=== PATIENT | male | born 1940 | race Caucasian/White ===

== ENCOUNTER 2020-04-12 15:05 | Inpatient (IN) ==
[2020-04-12] MEDS ORDERED: NS 0.9% 1000 ml BAG 1,000 ML IV ONE (15:15)
[2020-04-12] MEDS ORDERED: Magnesium Sulfate IV 1GM/100ML 1 GM/100 ML BAG IV ONE (15:32)
[2020-04-12] MEDS ORDERED: Ondansetron 4 mg VIAL 2 MG/ML 2 ml VIAL IV PRN (15:57)
[2020-04-12] MEDS ORDERED: NS 0.9% 1000 ml BAG 1,000 ML IV SCH (16:00)
[2020-04-12 16:30] LABS: Albumin/Globulin Ratio 0.8 (1-3); BUN/Creatinine Ratio 27.2 (8-20); Calcium 9.8 mg/dL (8.6-10.3); EGFR African American 54.3 (>60); EGFR Non-African American 44.9 (>60); Globulin 3.9 g/dL (2-4); Potassium 4.7 mmol/L (3.5-5.0); Total Protein 6.9 g/dL (6.4-8.9)
[2020-04-12 16:36] LABS: Hematocrit 27 % (42-52); Mean Corpuscular HGB Conc 33 g/dL (31-36); Mean Corpuscular Hemoglobin 32 pg (27-31); Mean Corpuscular Volume 97 fL (80-94); Mean Platelet Volume 9.6 fL (7.4-10.4); Platelet Count 26 10^3/uL (150-450); Red Blood Count 2.78 10^6 /uL (4.18-5.48); Red Cell Distribution Width 22 % (10-15); White Blood Count 24.3 10^3/uL (3.5-10.8)
[2020-04-12 16:38] LABS: Microcytosis 1+; Polychromasia 1+
[2020-04-12 16:43] LABS: ABS Basophils 0.1 10^3/ul (0-0.2); ABS Lymphocytes 19.5 10^3/ul (1.0-4.8); ABS Monocytes 1.1 10^3/ul (0-0.8); ABS Neutrophils 3.5 10^3/ul (1.5-7.7); Eosinophil % 0.1 %; Lymphocyte % 80.4 %; Nucleated Red Blood Cells % 0.1
[2020-04-12 17:17] LABS: Corrected Retic Count 1.4 % (0.5-1.5); Hematocrit for Retic CNT 27 % (42-52); Immature Retic Fraction 0.58
[2020-04-12 17:40] LABS: Indirect Bilirubin 1.4 mg/dL (0.3-1.0); Magnesium 2.4 mg/dL (1.9-2.7)
[2020-04-12 17:45] LABS: Phosphorus 4.5 mg/dL (2.5-5.0); Uric Acid 8.3 mg/dL (4.4-7.6)
[2020-04-13] MEDS ORDERED: NS 0.9% 500 ml BAG 500 ML IV ONE (03:38)
[2020-04-13 11:51] LABS: Hematocrit 23 % (42-52); Hemoglobin 7.7 g/dL (14.0-18.0); Mean Corpuscular HGB Conc 33 g/dL (31-36); Mean Corpuscular Hemoglobin 32 pg (27-31); Mean Corpuscular Volume 97 fL (80-94); Mean Platelet Volume 8.8 fL (7.4-10.4); Platelet Count 20 10^3/uL (150-450); Red Cell Distribution Width 22 % (10-15); White Blood Count 21.1 10^3/uL (3.5-10.8)
[2020-04-13 12:02] LABS: BUN/Creatinine Ratio 26.3 (8-20); Calcium 9.4 mg/dL (8.6-10.3); EGFR African American 52.3 (>60); EGFR Non-African American 43.3 (>60); Potassium 4.4 mmol/L (3.5-5.0)
[2020-04-13 12:52] LABS: ABS Basophils 0.1 10^3/ul (0-0.2); ABS Lymphocytes 17.4 10^3/ul (1.0-4.8); ABS Monocytes 0.6 10^3/ul (0-0.8); Eosinophil % 0.2 %; Lymphocyte % 82.4 %
[2020-04-14 06:16] LABS: Albumin 2.8 g/dL (3.2-5.2); Albumin/Globulin Ratio 0.8 (1-3); BUN/Creatinine Ratio 29.8 (8-20); Calcium 9.9 mg/dL (8.6-10.3); EGFR African American 58.8 (>60); EGFR Non-African American 48.6 (>60); Globulin 3.6 g/dL (2-4); Potassium 4.6 mmol/L (3.5-5.0); Total Bilirubin 1.8 mg/dL (0.2-1.0); Total Protein 6.4 g/dL (6.4-8.9)
[2020-04-14 07:14] LABS: Hematocrit 28 % (42-52); Hemoglobin 9.7 g/dL (14.0-18.0); Mean Corpuscular HGB Conc 34 g/dL (31-36); Mean Corpuscular Hemoglobin 33 pg (27-31); Mean Corpuscular Volume 94 fL (80-94); Mean Platelet Volume 8.8 fL (7.4-10.4); Platelet Count 18 10^3/uL (150-450); Red Cell Distribution Width 19 % (10-15); White Blood Count 22.2 10^3/uL (3.5-10.8)
[2020-04-14 09:33] LABS: ABS Basophils 0.1 10^3/ul (0-0.2); ABS Lymphocytes 17.6 10^3/ul (1.0-4.8); ABS Monocytes 0.8 10^3/ul (0-0.8); ABS Neutrophils 3.7 10^3/ul (1.5-7.7); Eosinophil % 0.1 %; Lymphocyte % 79.1 %
[2020-04-15 07:05] LABS: Hematocrit 28 % (42-52); Hemoglobin 9.4 g/dL (14.0-18.0); Mean Corpuscular HGB Conc 34 g/dL (31-36); Mean Corpuscular Hemoglobin 32 pg (27-31); Mean Corpuscular Volume 95 fL (80-94); Mean Platelet Volume 8.6 fL (7.4-10.4); Platelet Count 18 10^3/uL (150-450); Red Blood Count 2.91 10^6 /uL (4.18-5.48); Red Cell Distribution Width 20 % (10-15); White Blood Count 21.7 10^3/uL (3.5-10.8)
[2020-04-15 07:09] LABS: Calcium 9.8 mg/dL (8.6-10.3); EGFR African American 53.9 (>60); EGFR Non-African American 44.6 (>60); Potassium 4.7 mmol/L (3.5-5.0); Uric Acid 5.2 mg/dL (4.4-7.6)
[2020-04-15 07:34] LABS: ABS Basophils 0.1 10^3/ul (0-0.2); ABS Lymphocytes 17.6 10^3/ul (1.0-4.8); ABS Monocytes 0.8 10^3/ul (0-0.8); ABS Neutrophils 3.3 10^3/ul (1.5-7.7); Eosinophil % 0.1 %; Lymphocyte % 80.9 %
[2020-04-15] MEDS ORDERED: Lidocaine 2% 10 ML VIAL INJ ONE (10:16)
[2020-04-15 12:59] LABS: Hepatitis B Surface Antigen Nonreactive (Nonreactive)
[2020-04-15 13:04] LABS: Hepatitis A Ab IgM Negative (Negative)
[2020-04-15 13:05] LABS: Hepatitis B Core IgM Nonreactive (Nonreactive)
[2020-04-15 13:17] LABS: Hepatitis B Surface Ab Not Immune (Immune)
[2020-04-15] MEDS ORDERED: Morphine 2 MG/ML SYRINGE IV ONE (14:41)
[2020-04-15] MEDS: Senna TAB 8.6 mg TAB PO SCH (20:34)
[2020-04-16 08:11] LABS: Hematocrit 27 % (42-52); Mean Corpuscular HGB Conc 34 g/dL (31-36); Mean Corpuscular Hemoglobin 33 pg (27-31); Mean Corpuscular Volume 96 fL (80-94); Mean Platelet Volume 8.7 fL (7.4-10.4); Platelet Count 16 10^3/uL (150-450); Red Blood Count 2.78 10^6 /uL (4.18-5.48); Red Cell Distribution Width 20 % (10-15); White Blood Count 19.8 10^3/uL (3.5-10.8)
[2020-04-16 08:21] LABS: Albumin 2.7 g/dL (3.2-5.2); Albumin/Globulin Ratio 0.8 (1-3); BUN/Creatinine Ratio 29.1 (8-20); EGFR African American 62.4 (>60); EGFR Non-African American 51.6 (>60); Globulin 3.5 g/dL (2-4); Potassium 4.9 mmol/L (3.5-5.0); Total Bilirubin 1.6 mg/dL (0.2-1.0); Total Protein 6.2 g/dL (6.4-8.9)
[2020-04-16 09:08] LABS: ABS Basophils 0.1 10^3/ul (0-0.2); ABS Lymphocytes 16.1 10^3/ul (1.0-4.8); ABS Monocytes 0.7 10^3/ul (0-0.8); ABS Neutrophils 2.8 10^3/ul (1.5-7.7); Eosinophil % 0.2 %; Lymphocyte % 81.3 %
[2020-04-16] MEDS ORDERED: diPHENhydraMINE IV 50 MG/ML 1 ml VIAL (BENADRYL) SLOW PUSH ONE (09:15)
[2020-04-16] MEDS ORDERED: Meperidine 50 mg/ml SYRINGE 1 ml IV PRN (09:23)
[2020-04-16] MEDS ORDERED: Famotidine IV 10 MG/ML 2 ml VIAL (20 mg) IV SLOW PU PRN (09:23)
[2020-04-16] MEDS ORDERED: diPHENhydraMINE IV 50 MG/ML 1 ml VIAL (BENADRYL) IV ONE (09:24)
[2020-04-16] MEDS ORDERED: RITUXIMAB IVPB ONE (09:30)
[2020-04-16] MEDS ORDERED: NS 0.9% IVPB ONE (09:30)
[2020-04-16] MEDS: Sulfamethox/Trimethoprim DS TAB 800/160 mg PO SCH (09:42)
[2020-04-16] MEDS: methylPREDNISolone 125 mg 2 ML VIAL IV ONE ×2 (11:53→17:49)
[2020-04-16] MEDS ORDERED: Palonosetron 0.25 MG in Premix IV 0 ML IV ONE (16:00)
[2020-04-16] MEDS: NS 0.9% IVPB SCH (16:08)
[2020-04-16] MEDS: ETOPOSIDE IVPB SCH (16:08)
[2020-04-16] MEDS: DOXORUBICIN IVPB SCH (16:08)
[2020-04-16] MEDS: VINCRISTINE IVPB SCH (16:08)
[2020-04-16] MEDS ORDERED: APREPITANT 130 MG in Premix IV 0 ML IVPB ONE (16:15)
[2020-04-16] MEDS: Senna TAB 8.6 mg TAB PO SCH (21:35)
[2020-04-17 06:27] LABS: ABS Lymphocytes 1.4 10^3/ul (1.0-4.8); ABS Monocytes 0.3 10^3/ul (0-0.8); ABS Neutrophils 3.3 10^3/ul (1.5-7.7); Hematocrit 26 % (42-52); Hemoglobin 8.6 g/dL (14.0-18.0); Lymphocyte % 27.9 %; Mean Corpuscular HGB Conc 33 g/dL (31-36); Mean Corpuscular Hemoglobin 32 pg (27-31); Mean Corpuscular Volume 97 fL (80-94); Mean Platelet Volume 8.9 fL (7.4-10.4); Platelet Count 14 10^3/uL (150-450); Red Blood Count 2.68 10^6 /uL (4.18-5.48); Red Cell Distribution Width 20 % (10-15)
[2020-04-17 06:29] LABS: Albumin 2.6 g/dL (3.2-5.2); Albumin/Globulin Ratio 0.8 (1-3); BUN/Creatinine Ratio 28.7 (8-20); Calcium 9.6 mg/dL (8.6-10.3); EGFR Non-African American 37.2 (>60); Globulin 3.4 g/dL (2-4); Potassium 5.7 mmol/L (3.5-5.0); Total Bilirubin 1.1 mg/dL (0.2-1.0)
[2020-04-17] MEDS: Polyethylene Glycol 3350 17 GM PACKET PO SCH (13:58)
[2020-04-17] MEDS ORDERED: NS 0.9% 1000 ml BAG 1,000 ML IV ONE (15:08)
[2020-04-17] MEDS: NS 0.9% IVPB SCH (15:40)
[2020-04-17] MEDS: VINCRISTINE IVPB SCH (15:40)
[2020-04-17] MEDS: DOXORUBICIN IVPB SCH (15:40)
[2020-04-17] MEDS: ETOPOSIDE IVPB SCH (15:40)
[2020-04-17 15:45] LABS: BUN/Creatinine Ratio 32.1 (8-20); EGFR African American 48.1 (>60); EGFR Non-African American 39.7 (>60); Uric Acid 4.1 mg/dL (4.4-7.6)
[2020-04-17] MEDS: Senna TAB 8.6 mg TAB PO SCH (22:27)
[2020-04-18 07:06] LABS: Albumin 2.4 g/dL (3.2-5.2); Albumin/Globulin Ratio 0.7 (1-3); BUN/Creatinine Ratio 36.9 (8-20); Calcium 8.9 mg/dL (8.6-10.3); EGFR African American 55.2 (>60); EGFR Non-African American 45.6 (>60); Globulin 3.4 g/dL (2-4); Total Bilirubin 0.8 mg/dL (0.2-1.0); Total Protein 5.8 g/dL (6.4-8.9)
[2020-04-18 07:26] LABS: Potassium 5.5 mmol/L (3.5-5.0)
[2020-04-18 08:35] LABS: ABS Monocytes 0.2 10^3/ul (0-0.8); ABS Neutrophils 3.5 10^3/ul (1.5-7.7); Hematocrit 24 % (42-52); Lymphocyte % 21.6 %; Mean Corpuscular HGB Conc 34 g/dL (31-36); Mean Corpuscular Hemoglobin 33 pg (27-31); Mean Corpuscular Volume 97 fL (80-94); Mean Platelet Volume 8.8 fL (7.4-10.4); Platelet Count 15 10^3/uL (150-450); Red Blood Count 2.47 10^6 /uL (4.18-5.48); Red Cell Distribution Width 20 % (10-15); White Blood Count 4.7 10^3/uL (3.5-10.8)
[2020-04-18] MEDS: Polyethylene Glycol 3350 17 GM PACKET PO SCH (09:54)
[2020-04-18] MEDS: Sulfamethox/Trimethoprim DS TAB 800/160 mg PO SCH (10:05)
[2020-04-18] MEDS: VINCRISTINE IVPB SCH (15:35)
[2020-04-18] MEDS: ETOPOSIDE IVPB SCH (15:35)
[2020-04-18] MEDS: DOXORUBICIN IVPB SCH (15:35)
[2020-04-18] MEDS: NS 0.9% IVPB SCH (15:35)
[2020-04-18] MEDS: Senna TAB 8.6 mg TAB PO SCH (22:15)
[2020-04-19 07:40] LABS: Albumin 2.6 g/dL (3.2-5.2); Albumin/Globulin Ratio 0.7 (1-3); BUN/Creatinine Ratio 38.8 (8-20); Calcium 8.9 mg/dL (8.6-10.3); EGFR African American 56.1 (>60); EGFR Non-African American 46.3 (>60); Globulin 3.5 g/dL (2-4); Total Protein 6.1 g/dL (6.4-8.9)
[2020-04-19 07:41] LABS: Potassium 5.2 mmol/L (3.5-5.0)
[2020-04-19 07:47] LABS: ABS Monocytes 0.1 10^3/ul (0-0.8); Hematocrit 27 % (42-52); Hemoglobin 9.1 g/dL (14.0-18.0); Lymphocyte % 19.3 %; Mean Corpuscular HGB Conc 33 g/dL (31-36); Mean Corpuscular Hemoglobin 32 pg (27-31); Mean Corpuscular Volume 97 fL (80-94); Mean Platelet Volume 8.9 fL (7.4-10.4); Nucleated Red Blood Cells % 0.1; Platelet Count 19 10^3/uL (150-450); Red Blood Count 2.81 10^6 /uL (4.18-5.48); Red Cell Distribution Width 20 % (10-15); White Blood Count 5.1 10^3/uL (3.5-10.8)
[2020-04-19] MEDS: Polyethylene Glycol 3350 17 GM PACKET PO SCH (08:45)
[2020-04-19] MEDS ORDERED: Palonosetron 0.25 MG in Premix IV 0 ML IVPB ONE (09:00)
[2020-04-19] MEDS ORDERED: NS 0.9% 1000 ml BAG 1,000 ML IV ONE (10:34)
[2020-04-19] MEDS: ETOPOSIDE IVPB SCH (15:26)
[2020-04-19] MEDS: VINCRISTINE IVPB SCH (15:26)
[2020-04-19] MEDS: DOXORUBICIN IVPB SCH (15:26)
[2020-04-19] MEDS: NS 0.9% IVPB SCH (15:26)
[2020-04-19 17:13] LABS: Albumin 2.4 g/dL (3.2-5.2); Albumin/Globulin Ratio 0.8 (1-3); BUN/Creatinine Ratio 41.2 (8-20); Calcium 8.3 mg/dL (8.6-10.3); EGFR African American 61.3 (>60); EGFR Non-African American 50.7 (>60); Globulin 3.2 g/dL (2-4); Potassium 4.6 mmol/L (3.5-5.0); Total Bilirubin 0.8 mg/dL (0.2-1.0); Total Protein 5.6 g/dL (6.4-8.9)
[2020-04-19] MEDS: Senna TAB 8.6 mg TAB PO SCH (22:13)
[2020-04-20 07:57] LABS: ABS Lymphocytes 0.8 10^3/ul (1.0-4.8); ABS Neutrophils 2.6 10^3/ul (1.5-7.7); Hematocrit 25 % (42-52); Hemoglobin 8.3 g/dL (14.0-18.0); Mean Corpuscular HGB Conc 34 g/dL (31-36); Mean Corpuscular Hemoglobin 32 pg (27-31); Mean Corpuscular Volume 97 fL (80-94); Mean Platelet Volume 8.6 fL (7.4-10.4); Platelet Count 15 10^3/uL (150-450); Red Blood Count 2.57 10^6 /uL (4.18-5.48); Red Cell Distribution Width 20 % (10-15); White Blood Count 3.4 10^3/uL (3.5-10.8)
[2020-04-20 07:58] LABS: Albumin 2.4 g/dL (3.2-5.2); Albumin/Globulin Ratio 0.7 (1-3); BUN/Creatinine Ratio 40.9 (8-20); Calcium 8.7 mg/dL (8.6-10.3); EGFR African American 60.8 (>60); EGFR Non-African American 50.3 (>60); Globulin 3.3 g/dL (2-4); Phosphorus 4.7 mg/dL (2.5-5.0); Total Bilirubin 0.9 mg/dL (0.2-1.0); Total Protein 5.7 g/dL (6.4-8.9); Uric Acid 4.6 mg/dL (4.4-7.6)
[2020-04-20 08:03] LABS: Potassium 5.2 mmol/L (3.5-5.0)
[2020-04-20] MEDS: Polyethylene Glycol 3350 17 GM PACKET PO SCH (08:38)
[2020-04-20] MEDS: Sulfamethox/Trimethoprim DS TAB 800/160 mg PO SCH (08:38)
[2020-04-20] MEDS ORDERED: NS 0.9% 500 ml BAG 500 ML IV ONE (12:02)
[2020-04-20] MEDS ORDERED: NS 0.9% IVPB ONE ×2 (15:00→17:00)
[2020-04-20] MEDS ORDERED: CYCLOPHOSPHAMIDE IVPB ONE ×2 (15:00→17:00)
[2020-04-20] MEDS: Senna TAB 8.6 mg TAB PO SCH (21:04)
[2020-04-21 07:52] LABS: ABS Lymphocytes 0.5 10^3/ul (1.0-4.8); ABS Neutrophils 2.1 10^3/ul (1.5-7.7); Hematocrit 23 % (42-52); Hemoglobin 7.7 g/dL (14.0-18.0); Lymphocyte % 19.6 %; Mean Corpuscular HGB Conc 34 g/dL (31-36); Mean Corpuscular Hemoglobin 32 pg (27-31); Mean Corpuscular Volume 97 fL (80-94); Mean Platelet Volume 8.7 fL (7.4-10.4); Nucleated Red Blood Cells % 0.1; Platelet Count 14 10^3/uL (150-450); Red Blood Count 2.39 10^6 /uL (4.18-5.48); Red Cell Distribution Width 20 % (10-15); White Blood Count 2.6 10^3/uL (3.5-10.8)
[2020-04-21 07:57] LABS: Albumin 2.4 g/dL (3.2-5.2); Albumin/Globulin Ratio 0.8 (1-3); BUN/Creatinine Ratio 40.9 (8-20); Calcium 8.5 mg/dL (8.6-10.3); EGFR African American 66.4 (>60); EGFR Non-African American 54.8 (>60); Globulin 3.1 g/dL (2-4); Potassium 4.9 mmol/L (3.5-5.0); Total Bilirubin 0.9 mg/dL (0.2-1.0); Total Protein 5.5 g/dL (6.4-8.9)
[2020-04-21] MEDS: Polyethylene Glycol 3350 17 GM PACKET PO SCH (08:46)
[2020-04-21] MEDS: Senna TAB 8.6 mg TAB PO SCH (21:18)
[2020-04-22 07:03] LABS: ABS Lymphocytes 1.2 10^3/ul (1.0-4.8); ABS Neutrophils 5.4 10^3/ul (1.5-7.7); Eosinophil % 0.1 %; Hematocrit 25 % (42-52); Hemoglobin 8.3 g/dL (14.0-18.0); Lymphocyte % 17.9 %; Mean Corpuscular HGB Conc 34 g/dL (31-36); Mean Corpuscular Hemoglobin 32 pg (27-31); Mean Corpuscular Volume 94 fL (80-94); Mean Platelet Volume 8.6 fL (7.4-10.4); Platelet Count 15 10^3/uL (150-450); Red Blood Count 2.61 10^6 /uL (4.18-5.48); Red Cell Distribution Width 20 % (10-15); White Blood Count 6.6 10^3/uL (3.5-10.8)
[2020-04-22 07:14] LABS: Albumin 2.4 g/dL (3.2-5.2); Albumin/Globulin Ratio 0.8 (1-3); BUN/Creatinine Ratio 39.7 (8-20); Calcium 8.3 mg/dL (8.6-10.3); EGFR Non-African American 52.9 (>60); Globulin 2.9 g/dL (2-4); Potassium 4.7 mmol/L (3.5-5.0); Total Bilirubin 1.1 mg/dL (0.2-1.0); Total Protein 5.3 g/dL (6.4-8.9)
[2020-04-22] MEDS: Sulfamethox/Trimethoprim DS TAB 800/160 mg PO SCH (07:54)
[2020-04-22] MEDS: Polyethylene Glycol 3350 17 GM PACKET PO SCH (07:55)
[2020-04-22 09:11] LABS: BM Result Summary Normal
[2020-04-22] MEDS: Furosemide 20 mg/2 ml IV VIAL IV SLOW PU SCH (13:59)
[2020-04-22] MEDS: Senna TAB 8.6 mg TAB PO SCH (22:16)
[2020-04-23 07:26] LABS: Hematocrit 21 % (42-52); Mean Corpuscular HGB Conc 33 g/dL (31-36); Mean Corpuscular Hemoglobin 32 pg (27-31); Mean Corpuscular Volume 95 fL (80-94); Mean Platelet Volume 8.7 fL (7.4-10.4); Platelet Count 13 10^3/uL (150-450); Red Cell Distribution Width 19 % (10-15); White Blood Count 3.8 10^3/uL (3.5-10.8)
[2020-04-23 07:27] LABS: ABS Lymphocytes 0.7 10^3/ul (1.0-4.8); ABS Neutrophils 3.1 10^3/ul (1.5-7.7); Eosinophil % 0.5 %; Lymphocyte % 18.7 %
[2020-04-23 07:32] LABS: BUN/Creatinine Ratio 38.8 (8-20); Calcium 7.9 mg/dL (8.6-10.3); EGFR African American 65.2 (>60); EGFR Non-African American 53.9 (>60); Potassium 4.6 mmol/L (3.5-5.0)
[2020-04-23] MEDS: Furosemide 20 mg/2 ml IV VIAL IV SLOW PU SCH (08:04)
[2020-04-23] MEDS: Polyethylene Glycol 3350 17 GM PACKET PO SCH (08:09)
[2020-04-23] MEDS: Senna TAB 8.6 mg TAB PO SCH (22:25)
[2020-04-24] MEDS: Polyethylene Glycol 3350 17 GM PACKET PO SCH (09:14)
[2020-04-24] MEDS: Furosemide 20 mg/2 ml IV VIAL IV SLOW PU SCH (09:15)
[2020-04-24] MEDS: Sulfamethox/Trimethoprim DS TAB 800/160 mg PO SCH (09:15)
[2020-04-24 09:45] LABS: Albumin 2.1 g/dL (3.2-5.2); Albumin/Globulin Ratio 0.8 (1-3); BUN/Creatinine Ratio 36.4 (8-20); Calcium 7.7 mg/dL (8.6-10.3); EGFR African American 78.3 (>60); EGFR Non-African American 64.7 (>60); Globulin 2.7 g/dL (2-4); Potassium 4.2 mmol/L (3.5-5.0); Total Bilirubin 1.1 mg/dL (0.2-1.0); Total Protein 4.8 g/dL (6.4-8.9)
[2020-04-24 09:47] LABS: ABS Lymphocytes 0.6 10^3/ul (1.0-4.8); ABS Neutrophils 0.9 10^3/ul (1.5-7.7); Eosinophil % 0.8 %; Hematocrit 19 % (42-52); Hemoglobin 6.3 g/dL (14.0-18.0); Lymphocyte % 38.7 %; Mean Corpuscular HGB Conc 34 g/dL (31-36); Mean Corpuscular Hemoglobin 32 pg (27-31); Mean Corpuscular Volume 95 fL (80-94); Mean Platelet Volume 8.7 fL (7.4-10.4); Platelet Count 10 10^3/uL (150-450); Red Blood Count 1.95 10^6 /uL (4.18-5.48); Red Cell Distribution Width 19 % (10-15); White Blood Count 1.6 10^3/uL (3.5-10.8)
[2020-04-24] MEDS: Senna TAB 8.6 mg TAB PO SCH (20:47)
[2020-04-25] MEDS: Polyethylene Glycol 3350 17 GM PACKET PO SCH (09:12)
[2020-04-25] MEDS: Furosemide 20 mg/2 ml IV VIAL IV SLOW PU SCH (09:42)
[2020-04-25 09:45] LABS: Hematocrit 24 % (42-52); Mean Corpuscular HGB Conc 34 g/dL (31-36); Mean Corpuscular Hemoglobin 32 pg (27-31); Mean Corpuscular Volume 93 fL (80-94); Mean Platelet Volume 8.6 fL (7.4-10.4); Platelet Count 9 10^3/uL (150-450); Red Blood Count 2.53 10^6 /uL (4.18-5.48); Red Cell Distribution Width 17 % (10-15); White Blood Count 0.6 10^3/uL (3.5-10.8)
[2020-04-25 09:55] LABS: Albumin 2.2 g/dL (3.2-5.2); Albumin/Globulin Ratio 0.8 (1-3); BUN/Creatinine Ratio 30.7 (8-20); Calcium 7.7 mg/dL (8.6-10.3); EGFR African American 86.4 (>60); EGFR Non-African American 71.4 (>60); Globulin 2.7 g/dL (2-4); Potassium 4.1 mmol/L (3.5-5.0); Total Bilirubin 1.3 mg/dL (0.2-1.0); Total Protein 4.9 g/dL (6.4-8.9)
[2020-04-25 10:19] LABS: ABS Lymphocytes 0.5 10^3/ul (1.0-4.8); ABS Neutrophils 0.1 10^3/ul (1.5-7.7); Eosinophil % 1.3 %; Lymphocyte % 83.6 %
[2020-04-25] MEDS: Senna TAB 8.6 mg TAB PO SCH (21:49)
[2020-04-26 07:23] LABS: Albumin 2.1 g/dL (3.2-5.2); Albumin/Globulin Ratio 0.8 (1-3); Calcium 7.6 mg/dL (8.6-10.3); EGFR African American 87.4 (>60); EGFR Non-African American 72.3 (>60); Globulin 2.8 g/dL (2-4); Potassium 4.1 mmol/L (3.5-5.0); Total Bilirubin 1.2 mg/dL (0.2-1.0); Total Protein 4.9 g/dL (6.4-8.9)
[2020-04-26 07:46] LABS: Hematocrit 23 % (42-52); Hemoglobin 7.7 g/dL (14.0-18.0); Mean Corpuscular HGB Conc 34 g/dL (31-36); Mean Corpuscular Hemoglobin 32 pg (27-31); Mean Corpuscular Volume 94 fL (80-94); Mean Platelet Volume 8.2 fL (7.4-10.4); Platelet Count 10 10^3/uL (150-450); Red Blood Count 2.43 10^6 /uL (4.18-5.48); Red Cell Distribution Width 17 % (10-15); White Blood Count 0.5 10^3/uL (3.5-10.8)
[2020-04-26] MEDS: Sulfamethox/Trimethoprim DS TAB 800/160 mg PO SCH (09:45)
[2020-04-26] MEDS: Furosemide 20 mg/2 ml IV VIAL IV SLOW PU SCH (09:46)
[2020-04-26] MEDS: Polyethylene Glycol 3350 17 GM PACKET PO SCH (09:46)
[2020-04-26] MEDS: Senna TAB 8.6 mg TAB PO SCH (20:33)
[2020-04-26 22:15] LABS: Mean Platelet Volume 7.7 fL (7.4-10.4); Platelet Count 14 10^3/uL (150-450)
[2020-04-27 06:26] LABS: Albumin 2.2 g/dL (3.2-5.2); Albumin/Globulin Ratio 0.8 (1-3); BUN/Creatinine Ratio 22.6 (8-20); Calcium 7.5 mg/dL (8.6-10.3); EGFR African American 95.1 (>60); EGFR Non-African American 78.6 (>60); Globulin 2.6 g/dL (2-4); Potassium 4.1 mmol/L (3.5-5.0); Total Bilirubin 1.6 mg/dL (0.2-1.0); Total Protein 4.8 g/dL (6.4-8.9)
[2020-04-27 07:03] LABS: Hematocrit 23 % (42-52); Hemoglobin 7.8 g/dL (14.0-18.0); Mean Corpuscular HGB Conc 34 g/dL (31-36); Mean Corpuscular Hemoglobin 32 pg (27-31); Mean Corpuscular Volume 93 fL (80-94); Mean Platelet Volume 8.4 fL (7.4-10.4); Platelet Count 9 10^3/uL (150-450); Red Blood Count 2.46 10^6 /uL (4.18-5.48); Red Cell Distribution Width 17 % (10-15); White Blood Count 0.5 10^3/uL (3.5-10.8)
[2020-04-27 07:05] LABS: ABS Lymphocytes 0.5 10^3/ul (1.0-4.8); Eosinophil % 0.8 %; Lymphocyte % 97.4 %; Nucleated Red Blood Cells % 0.6
[2020-04-27] MEDS: Furosemide 20 mg/2 ml IV VIAL IV SLOW PU SCH (11:24)
[2020-04-27] MEDS: Polyethylene Glycol 3350 17 GM PACKET PO SCH (11:25)
[2020-04-27] MEDS: Senna TAB 8.6 mg TAB PO SCH (21:49)
[2020-04-27 22:12] LABS: Mean Platelet Volume 7.1 fL (7.4-10.4); Platelet Count 18 10^3/uL (150-450)
[2020-04-28 06:11] LABS: Albumin 2.3 g/dL (3.2-5.2); Albumin/Globulin Ratio 0.8 (1-3); Calcium 7.6 mg/dL (8.6-10.3); EGFR African American 87.4 (>60); EGFR Non-African American 72.3 (>60); Globulin 2.9 g/dL (2-4); Total Bilirubin 1.7 mg/dL (0.2-1.0); Total Protein 5.2 g/dL (6.4-8.9)
[2020-04-28 06:16] LABS: Hematocrit 23 % (42-52); Mean Corpuscular HGB Conc 34 g/dL (31-36); Mean Corpuscular Hemoglobin 31 pg (27-31); Mean Corpuscular Volume 91 fL (80-94); Mean Platelet Volume 7.7 fL (7.4-10.4); Platelet Count 17 10^3/uL (150-450); Red Blood Count 2.56 10^6 /uL (4.18-5.48); Red Cell Distribution Width 17 % (10-15); White Blood Count 0.4 10^3/uL (3.5-10.8)
[2020-04-28 07:33] LABS: ABS Lymphocytes 0.4 10^3/ul (1.0-4.8); Nucleated Red Blood Cells % 1.2
[2020-04-28] MEDS: Sulfamethox/Trimethoprim DS TAB 800/160 mg PO SCH (09:04)
[2020-04-28] MEDS: Polyethylene Glycol 3350 17 GM PACKET PO SCH (09:04)
[2020-04-28] MEDS ORDERED: Furosemide 20 mg/2 ml IV VIAL IV SLOW PU ONE (16:45)
[2020-04-28] MEDS ORDERED: Piperacillin/Tazobac ADVAN 3.375 GM in NS 0.9% 100 ml BAG 100 ML IV ONE (17:30)
[2020-04-28] MEDS ORDERED: Zosyn per Pharmacy NOTE FOLLOW UP SCH (18:00)
[2020-04-28] MEDS ORDERED: NS 0.9% 1,000 ML IV ONE (18:45)
[2020-04-28] MEDS: ZOSYN 3.375 GM Q8H per EXTENDED INFUSION IV SCH (21:39)
[2020-04-28] MEDS: Senna TAB 8.6 mg TAB PO SCH (21:41)
[2020-04-29] MEDS: ZOSYN 3.375 GM Q8H per EXTENDED INFUSION IV SCH ×3 (05:24→22:18)
[2020-04-29 06:08] LABS: Albumin/Globulin Ratio 0.7 (1-3); BUN/Creatinine Ratio 13.1 (8-20); Calcium 7.2 mg/dL (8.6-10.3); EGFR African American 64.6 (>60); EGFR Non-African American 53.4 (>60); Globulin 2.7 g/dL (2-4); Potassium 3.8 mmol/L (3.5-5.0); Total Bilirubin 3.2 mg/dL (0.2-1.0); Total Protein 4.7 g/dL (6.4-8.9)
[2020-04-29 07:09] LABS: Hematocrit 22 % (42-52); Hemoglobin 7.4 g/dL (14.0-18.0); Mean Corpuscular HGB Conc 34 g/dL (31-36); Mean Corpuscular Hemoglobin 32 pg (27-31); Mean Corpuscular Volume 93 fL (80-94); Mean Platelet Volume 8.1 fL (7.4-10.4); Platelet Count 15 10^3/uL (150-450); Red Blood Count 2.35 10^6 /uL (4.18-5.48); Red Cell Distribution Width 16 % (10-15); White Blood Count 0.3 10^3/uL (3.5-10.8)
[2020-04-29 08:24] LABS: ABS Lymphocytes 0.3 10^3/ul (1.0-4.8); ABS Neutrophils 0.1 10^3/ul (1.5-7.7); Eosinophil % 0.5 %; Lymphocyte % 75.3 %; Nucleated Red Blood Cells % 0.4
[2020-04-29] MEDS: Polyethylene Glycol 3350 17 GM PACKET PO SCH (11:05)
[2020-04-29] MEDS: Senna TAB 8.6 mg TAB PO SCH (22:18)
[2020-04-30] MEDS: ZOSYN 3.375 GM Q8H per EXTENDED INFUSION IV SCH ×3 (05:36→20:43)
[2020-04-30 06:33] LABS: Hematocrit 23 % (42-52); Hemoglobin 7.7 g/dL (14.0-18.0); Mean Corpuscular HGB Conc 34 g/dL (31-36); Mean Corpuscular Hemoglobin 32 pg (27-31); Mean Corpuscular Volume 92 fL (80-94); Mean Platelet Volume 8.5 fL (7.4-10.4); Platelet Count 22 10^3/uL (150-450); Red Blood Count 2.43 10^6 /uL (4.18-5.48); Red Cell Distribution Width 16 % (10-15); White Blood Count 0.6 10^3/uL (3.5-10.8)
[2020-04-30 06:39] LABS: Albumin/Globulin Ratio 0.7 (1-3); BUN/Creatinine Ratio 13.5 (8-20); Calcium 7.1 mg/dL (8.6-10.3); EGFR Non-African American 55.4 (>60); Globulin 2.9 g/dL (2-4); Potassium 3.6 mmol/L (3.5-5.0); Total Bilirubin 1.9 mg/dL (0.2-1.0); Total Protein 4.9 g/dL (6.4-8.9)
[2020-04-30] MEDS: Sulfamethox/Trimethoprim DS TAB 800/160 mg PO SCH (07:30)
[2020-04-30] MEDS: Polyethylene Glycol 3350 17 GM PACKET PO SCH (07:30)
[2020-04-30 08:33] LABS: ABS Lymphocytes 0.3 10^3/ul (1.0-4.8); ABS Neutrophils 0.3 10^3/ul (1.5-7.7); Eosinophil % 0.5 %; Lymphocyte % 47.1 %
[2020-04-30 10:18] LABS: FBLP Result Summary Normal
[2020-04-30] MEDS: Senna TAB 8.6 mg TAB PO SCH (20:44)
[2020-05-01] MEDS: ZOSYN 3.375 GM Q8H per EXTENDED INFUSION IV SCH ×3 (05:01→21:38)
[2020-05-01 05:59] LABS: Hematocrit 25 % (42-52); Hemoglobin 8.3 g/dL (14.0-18.0); Mean Corpuscular HGB Conc 33 g/dL (31-36); Mean Corpuscular Hemoglobin 30 pg (27-31); Mean Corpuscular Volume 91 fL (80-94); Mean Platelet Volume 9.7 fL (7.4-10.4); Platelet Count 29 10^3/uL (150-450); Red Blood Count 2.72 10^6 /uL (4.18-5.48); Red Cell Distribution Width 18 % (10-15); White Blood Count 1.5 10^3/uL (3.5-10.8)
[2020-05-01 06:29] LABS: Albumin/Globulin Ratio 0.7 (1-3); BUN/Creatinine Ratio 14.5 (8-20); Calcium 7.4 mg/dL (8.6-10.3); EGFR Non-African American 60.3 (>60); Potassium 3.6 mmol/L (3.5-5.0); Total Bilirubin 1.3 mg/dL (0.2-1.0)
[2020-05-01 07:31] LABS: ABS Lymphocytes 0.4 10^3/ul (1.0-4.8); ABS Monocytes 0.1 10^3/ul (0-0.8); Eosinophil % 0.3 %
[2020-05-01] MEDS: Polyethylene Glycol 3350 17 GM PACKET PO SCH (10:03)
[2020-05-01] MEDS: methylPREDNISolone SOD 40 mg/ml 1 ml VIAL IV SCH ×2 (14:45→21:37)
[2020-05-01] MEDS: Senna TAB 8.6 mg TAB PO SCH (21:37)
[2020-05-02 01:24] LABS: Hematocrit 31 % (42-52); Hemoglobin 10.4 g/dL (14.0-18.0); Mean Corpuscular HGB Conc 34 g/dL (31-36); Mean Corpuscular Hemoglobin 31 pg (27-31); Mean Corpuscular Volume 92 fL (80-94); Mean Platelet Volume 9.3 fL (7.4-10.4); Platelet Count 53 10^3/uL (150-450); Red Blood Count 3.31 10^6 /uL (4.18-5.48); Red Cell Distribution Width 18 % (10-15); White Blood Count 3.9 10^3/uL (3.5-10.8)
[2020-05-02] MEDS ORDERED: Vancomycin 2,000 MG in NS 0.9% 500 ml BAG 500 ML IVPB ONE (01:30)
[2020-05-02 01:37] LABS: Albumin 2.2 g/dL (3.2-5.2); Albumin/Globulin Ratio 0.6 (1-3); BUN/Creatinine Ratio 13.6 (8-20); Calcium 7.7 mg/dL (8.6-10.3); EGFR African American 78.3 (>60); EGFR Non-African American 64.7 (>60); Globulin 3.4 g/dL (2-4); Potassium 3.7 mmol/L (3.5-5.0); Total Protein 5.6 g/dL (6.4-8.9)
[2020-05-02 02:48] LABS: ABS Lymphocytes 0.3 10^3/ul (1.0-4.8); ABS Monocytes 0.1 10^3/ul (0-0.8); ABS Neutrophils 3.5 10^3/ul (1.5-7.7); Lymphocyte % 6.9 %
[2020-05-02] MEDS ORDERED: Vancomycin per Pharmacy 1 EA NOTE FOLLOW UP PRN (03:22)
[2020-05-02] MEDS: ZOSYN 3.375 GM Q8H per EXTENDED INFUSION IV SCH ×3 (05:55→23:59)
[2020-05-02] MEDS: Sulfamethox/Trimethoprim DS TAB 800/160 mg PO SCH (08:21)
[2020-05-02] MEDS: methylPREDNISolone SOD 40 mg/ml 1 ml VIAL IV SCH (08:23)
[2020-05-02] MEDS: Polyethylene Glycol 3350 17 GM PACKET PO SCH (08:24)
[2020-05-02] MEDS: VANCOMYCIN 1250 MG IVPB SCH (20:14)
[2020-05-02] MEDS: Senna TAB 8.6 mg TAB PO SCH (20:18)
[2020-05-03] MEDS: VANCOMYCIN 1250 MG IVPB SCH ×2 (04:56→20:42)
[2020-05-03] MEDS: ZOSYN 3.375 GM Q8H per EXTENDED INFUSION IV SCH ×3 (07:22→23:18)
[2020-05-03 08:56] LABS: Albumin 2.1 g/dL (3.2-5.2); Albumin/Globulin Ratio 0.7 (1-3); BUN/Creatinine Ratio 21.5 (8-20); Calcium 7.6 mg/dL (8.6-10.3); EGFR African American 80.9 (>60); EGFR Non-African American 66.8 (>60); Globulin 3.2 g/dL (2-4); Total Bilirubin 0.5 mg/dL (0.2-1.0); Total Protein 5.3 g/dL (6.4-8.9)
[2020-05-03 09:01] LABS: Hematocrit 28 % (42-52); Hemoglobin 9.4 g/dL (14.0-18.0); Mean Corpuscular HGB Conc 34 g/dL (31-36); Mean Corpuscular Hemoglobin 31 pg (27-31); Mean Corpuscular Volume 92 fL (80-94); Mean Platelet Volume 9.5 fL (7.4-10.4); Platelet Count 58 10^3/uL (150-450); Red Blood Count 3.05 10^6 /uL (4.18-5.48); Red Cell Distribution Width 19 % (10-15); White Blood Count 5.3 10^3/uL (3.5-10.8)
[2020-05-03] MEDS: Polyethylene Glycol 3350 17 GM PACKET PO SCH (09:52)
[2020-05-03 10:03] LABS: ABS Lymphocytes 0.7 10^3/ul (1.0-4.8); ABS Monocytes 0.3 10^3/ul (0-0.8); ABS Neutrophils 4.3 10^3/ul (1.5-7.7); Lymphocyte % 12.4 %
[2020-05-03] MEDS: methylPREDNISolone SOD 40 mg/ml 1 ml VIAL IV SCH (10:45)
[2020-05-03] MEDS ORDERED: Alteplase (CATHFLO) 2 MG VIAL IV ONE (13:15)
[2020-05-03] MEDS ORDERED: Vancomycin Trough Check NOTE FOLLOW UP ONE (14:30)
[2020-05-03] MEDS ORDERED: Vancomycin 1,250 MG IV x ONCE IVPB ONE (20:08)
[2020-05-03] MEDS: Senna TAB 8.6 mg TAB PO SCH (20:41)
[2020-05-04] MEDS ORDERED: Vancomycin 1000 MG in NS 0.9% 250 ML IVPB SCH (03:00)
[2020-05-04] MEDS: ZOSYN 3.375 GM Q8H per EXTENDED INFUSION IV SCH ×3 (06:13→21:55)
[2020-05-04] MEDS: methylPREDNISolone SOD 40 mg/ml 1 ml VIAL IV SCH (07:47)
[2020-05-04] MEDS: Sulfamethox/Trimethoprim DS TAB 800/160 mg PO SCH (07:48)
[2020-05-04] MEDS: Polyethylene Glycol 3350 17 GM PACKET PO SCH (07:48)
[2020-05-04] MEDS: Vancomycin 1000 MG in NS 0.9% 250 ML IVPB SCH ×2 (09:54→21:55)
[2020-05-04] MEDS: Enoxaparin 80 MG/0.8 ML SYR SUBCUT SCH ×2 (11:08→23:32)
[2020-05-04] MEDS: Senna TAB 8.6 mg TAB PO SCH (19:09)
[2020-05-05] MEDS: ZOSYN 3.375 GM Q8H per EXTENDED INFUSION IV SCH ×3 (05:47→21:40)
[2020-05-05 06:26] LABS: Hematocrit 30 % (42-52); Hemoglobin 9.7 g/dL (14.0-18.0); Mean Corpuscular HGB Conc 33 g/dL (31-36); Mean Corpuscular Hemoglobin 30 pg (27-31); Mean Corpuscular Volume 92 fL (80-94); Mean Platelet Volume 8.9 fL (7.4-10.4); Platelet Count 74 10^3/uL (150-450); Red Blood Count 3.22 10^6 /uL (4.18-5.48); Red Cell Distribution Width 18 % (10-15); White Blood Count 4.9 10^3/uL (3.5-10.8)
[2020-05-05 06:43] LABS: Albumin 2.1 g/dL (3.2-5.2); Albumin/Globulin Ratio 0.7 (1-3); BUN/Creatinine Ratio 23.5 (8-20); Calcium 7.5 mg/dL (8.6-10.3); EGFR African American 85.5 (>60); EGFR Non-African American 70.6 (>60); Globulin 2.9 g/dL (2-4); Potassium 4.2 mmol/L (3.5-5.0); Total Bilirubin 0.5 mg/dL (0.2-1.0)
[2020-05-05 08:17] LABS: ABS Lymphocytes 0.9 10^3/ul (1.0-4.8); ABS Monocytes 0.3 10^3/ul (0-0.8); ABS Neutrophils 3.8 10^3/ul (1.5-7.7); Lymphocyte % 17.5 %; Nucleated Red Blood Cells % 0.1
[2020-05-05] MEDS: Polyethylene Glycol 3350 17 GM PACKET PO SCH (08:43)
[2020-05-05] MEDS: methylPREDNISolone SOD 40 mg/ml 1 ml VIAL IV SCH (09:23)
[2020-05-05] MEDS ORDERED: Vancomycin Trough Check NOTE FOLLOW UP ONE ×2 (10:00→15:00)
[2020-05-05 10:14] LABS: EGFR African American 88.5 (>60); EGFR Non-African American 73.1 (>60)
[2020-05-05 10:15] LABS: Vancomycin Trough 19.1 mcg/mL
[2020-05-05] MEDS: Vancomycin 1000 MG in NS 0.9% 250 ML IVPB SCH ×2 (10:50→23:22)
[2020-05-05] MEDS: Enoxaparin 80 MG/0.8 ML SYR SUBCUT SCH ×2 (13:13→23:21)
[2020-05-05] MEDS: Senna TAB 8.6 mg TAB PO SCH (21:41)
[2020-05-06] MEDS: ZOSYN 3.375 GM Q8H per EXTENDED INFUSION IV SCH ×3 (05:56→22:15)
[2020-05-06] MEDS: Sulfamethox/Trimethoprim DS TAB 800/160 mg PO SCH (08:28)
[2020-05-06] MEDS: methylPREDNISolone SOD 40 mg/ml 1 ml VIAL IV SCH (08:28)
[2020-05-06] MEDS: Polyethylene Glycol 3350 17 GM PACKET PO SCH (08:34)
[2020-05-06 12:17] LABS: Hematocrit 31 % (42-52); Hemoglobin 10.4 g/dL (14.0-18.0); Mean Corpuscular HGB Conc 34 g/dL (31-36); Mean Corpuscular Hemoglobin 31 pg (27-31); Mean Corpuscular Volume 91 fL (80-94); Mean Platelet Volume 8.4 fL (7.4-10.4); Platelet Count 87 10^3/uL (150-450); Red Blood Count 3.39 10^6 /uL (4.18-5.48); Red Cell Distribution Width 18 % (10-15); White Blood Count 5.9 10^3/uL (3.5-10.8)
[2020-05-06 14:22] LABS: ABS Lymphocytes 0.6 10^3/ul (1.0-4.8); ABS Monocytes 0.2 10^3/ul (0-0.8); ABS Neutrophils 5.2 10^3/ul (1.5-7.7); Lymphocyte % 9.7 %
[2020-05-06] MEDS: Senna TAB 8.6 mg TAB PO SCH (22:16)
[2020-05-07] MEDS: ZOSYN 3.375 GM Q8H per EXTENDED INFUSION IV SCH (06:06)
[2020-05-07 06:17] LABS: Hematocrit 30 % (42-52); Hemoglobin 10.1 g/dL (14.0-18.0); Mean Corpuscular HGB Conc 34 g/dL (31-36); Mean Corpuscular Hemoglobin 31 pg (27-31); Mean Corpuscular Volume 90 fL (80-94); Mean Platelet Volume 7.9 fL (7.4-10.4); Platelet Count 100 10^3/uL (150-450); Red Cell Distribution Width 17 % (10-15); White Blood Count 6.7 10^3/uL (3.5-10.8)
[2020-05-07 06:30] LABS: Albumin 2.3 g/dL (3.2-5.2); Albumin/Globulin Ratio 0.7 (1-3); BUN/Creatinine Ratio 17.6 (8-20); Calcium 7.7 mg/dL (8.6-10.3); EGFR African American 85.5 (>60); EGFR Non-African American 70.6 (>60); Globulin 3.1 g/dL (2-4); Potassium 4.1 mmol/L (3.5-5.0); Total Bilirubin 0.6 mg/dL (0.2-1.0); Total Protein 5.4 g/dL (6.4-8.9)
[2020-05-07] MEDS: Polyethylene Glycol 3350 17 GM PACKET PO SCH (09:22)
[2020-05-07] MEDS: Senna TAB 8.6 mg TAB PO SCH (19:49)
[2020-05-07] MEDS: Amoxicillin/Clavul 875/125 TAB (Augmentin 875 tab) PO SCH (19:53)
[2020-05-08 08:14] LABS: BUN/Creatinine Ratio 17.8 (8-20); Calcium 7.9 mg/dL (8.6-10.3); EGFR African American 86.4 (>60); EGFR Non-African American 71.4 (>60); Potassium 4.1 mmol/L (3.5-5.0)
[2020-05-08 08:33] LABS: Hematocrit 31 % (42-52); Hemoglobin 10.3 g/dL (14.0-18.0); Mean Corpuscular HGB Conc 34 g/dL (31-36); Mean Corpuscular Hemoglobin 31 pg (27-31); Mean Corpuscular Volume 91 fL (80-94); Platelet Count 120 10^3/uL (150-450); Red Blood Count 3.37 10^6 /uL (4.18-5.48); Red Cell Distribution Width 17 % (10-15); White Blood Count 6.8 10^3/uL (3.5-10.8)
[2020-05-08] MEDS: Amoxicillin/Clavul 875/125 TAB (Augmentin 875 tab) PO SCH (09:09)
[2020-05-08] MEDS: Polyethylene Glycol 3350 17 GM PACKET PO SCH (09:13)
[2020-05-08 09:43] LABS: ABS Lymphocytes 1.3 10^3/ul (1.0-4.8); ABS Monocytes 0.6 10^3/ul (0-0.8); ABS Neutrophils 4.9 10^3/ul (1.5-7.7); Lymphocyte % 19.5 %; Nucleated Red Blood Cells % 0.1
[2020-05-08 11:43] VITALS: BP 118/70
== END 2020-05-08 15:00 | disposition home health service (06) | DRG 840 ==
LOC: ED 15:05 → MEDTELE 15:57 → MED 04-23 17:25
PROVIDERS: ADMIT Internal Medicine Hematology & Oncology; ATTEND Internal Medicine Hematology & Oncology